=== PATIENT | female | born 1975 | race Caucasian/White ===

== ENCOUNTER 2024-05-30 16:01 | Emergency (ER) | payer SELFPAY ==
[2024-05-30] MEDS ORDERED: diphenhydrAMINE 50 MG/ML VIAL ONE (16:47)
[2024-05-30] MEDS ORDERED: Metoclopramide HCl 10 MG (2 mL) VIAL ONE (16:47)
[2024-05-30] MEDS ORDERED: Ketorolac Tromethamine 30 MG (1 mL) VIAL ONE (19:21)
[2024-05-30] MEDS ORDERED: Magnesium 2 GM/50 ML BAG (IN WATER) ONE (19:21)
== END 2024-05-30 20:30 | disposition home or self-care (01) ==
LOC: CSHERS 16:01
DX: G43.909 Migraine, unspecified, not intractable, without status migrainosus (principal); I10 Essential (primary) hypertension; E78.5 Hyperlipidemia, unspecified; E03.9 Hypothyroidism, unspecified; Z79.899 Other long term (current) drug therapy
CPT/HCPCS: 96361; 96374; 96375; J1200; J1885; J2765; J3475